=== PATIENT | male | born 2000 | race Two or more races ===

== ENCOUNTER 2020-08-02 18:49 | Emergency (ER) | payer MEDICAID ==
[~2020-08-02] VITALS: Ht 170.2 cm; Wt 59.0 kg
[2020-08-02 18:58] VITALS: BP 127/80
--- NOTE | 2020-08-02 18:58 | NUR ---
PT SELF PRESENTS TO ED. ANXIOUS APPEARING STATING HE FELT LIKE HIS HEART "STOPPED" 3 TIMES IN THE LAST 15 DAYS. PT STATES IT FEELS DIFFERENT W/ HIS USUAL ANXIETY ATTACKS. PLACED ON MONITOR. AWAITING MD CLARK.
--- NOTE | 2020-08-02 19:07 | NUR ---
FABIOLAP PA AT BEDSIDE FOR EVAL.
[2020-08-02] MEDS ORDERED: HYDR-500 PO (19:20)
--- NOTE | 2020-08-02 19:21 | NUR ---
REPORT GIVEN TO JARAD MISTRY RN FOR CRISTÓBAL.
[2020-08-02] MEDS ORDERED: LORAZEPAM 0.5 MG TABLET ONE (19:23)
[2020-08-02] MEDS ORDERED: LORAZEPAM 1 MG TABLET PO ONE (19:30)
== END 2020-08-02 19:28 | disposition home or self-care (01) ==
LOC: ER 18:58
DX: F41.9 Anxiety disorder, unspecified (principal)

== ENCOUNTER 2020-08-15 20:56 | Emergency (ER) | payer MEDICAID ==
[~2020-08-15] VITALS: Ht 157.5 cm; Wt 61.2 kg
[~2020-08-15 20:56] MED LIST: HYDR-500 PO
--- NOTE | 2020-08-15 21:00 | NUR ---
PT BIBSELF C/O CHEST PAIN X4DAYS WITH NECK AND SHOULDER PAIN. PT AAOX4 BREATHING EVENLY AND UNLABORED. PT STATES "ITS LIKE I HAVE AIR AND ITS CAUSING ME PAIN" PT ATTACHED TO MONITOR AND POX. PA AT BEDSIDE. PT GIVEN BLANKET AND CALL LIGHT WITHIN REACH
[2020-08-15] MEDS ORDERED: LORAZEPAM 0.5 MG TABLET ONE (21:32)
[2020-08-15] MEDS ORDERED: KETOROLAC TROMETHAMINE INJ 30 MG/ML VIAL ONE (21:33)
[2020-08-15] MEDS: KETOROLAC TROMETHAMINE INJ 30 MG/ML VIAL IM ONE (21:55)
[2020-08-15] MEDS: LORAZEPAM 0.5 MG TABLET PO ONE (21:55)
[2020-08-15] MEDS ORDERED: IBUP-1955 PO (21:59)
--- NOTE | 2020-08-15 22:28 | NUR ---
Patient discharged to home in stable condition. Written and verbal after care instructions given. Patient verbalizes understanding of instruction. Pt ambulatory with a steady gait
[2020-08-15 22:29] VITALS: BP 112/71
== END 2020-08-15 22:29 | disposition home or self-care (01) ==
LOC: ER 20:56
DX: R07.89 Other chest pain (principal); F41.9 Anxiety disorder, unspecified; Z79.899 Other long term (current) drug therapy
CPT/HCPCS: 71045; 73030; 96372; 99284; J1885

== ENCOUNTER 2020-09-24 13:53 | Emergency (ER) | payer SELFPAY ==
[~2020-09-24] VITALS: Ht 152.4 cm; Wt 63.5 kg
[~2020-09-24 13:53] MED LIST changes: +IBUP-1955 PO
--- NOTE | 2020-09-24 14:10 | NUR ---
c/o chest pressure like pain x 20 days 6/10 pain scale. Patient a/ox4, ambulatory with steady gait. No distress noted.
[2020-09-24] MEDS ORDERED: IBUP-1955 PO (15:26)
--- NOTE | 2020-09-24 15:33 | NUR ---
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 PATIENT A/OX4, BREATHINGE DIAMANTE AND UNLABORED, NO SOB NOTED. Patient discharged to home in stable condition. Written and verbal after care instructions given. Patient verbalizes understanding of instruction.
[2020-09-24 15:36] VITALS: BP 124/75
== END 2020-09-24 15:36 | disposition home or self-care (01) ==
LOC: ER 13:53
DX: R07.89 Other chest pain (principal); F41.9 Anxiety disorder, unspecified; Z79.899 Other long term (current) drug therapy